=== PATIENT | female | born 1970 | race African-American/Black ===

== ENCOUNTER 2021-02-04 10:51 | Outpatient (CLI) | payer OTHER, SELFPAY | END 2021-02-04 10:52 | disposition home or self-care (01) | LOC: ANHAUDIO 10:54 | PROVIDERS: Visit Provider Otolaryngology | DX: H93.13 Tinnitus, bilateral (principal); H90.3 Sensorineural hearing loss, bilateral | CPT/HCPCS: 92557; 92567 ==